=== PATIENT | male | born 1980 | race African-American/Black ===

== ENCOUNTER 2018-02-02 18:27 | Emergency (ER) | payer SELFPAY ==
[2018-02-02] MEDS ORDERED: NA CHLORIDE 0.9% 2,000 ML ONE (18:59)
[2018-02-02 19:28] LABS: Albumin 4.1 g/dL (3.4-5.0); Bilirubin Direct 0.4 mg/dL (0-0.2); Bilirubin Total 1.7 mg/dL (0.2-1.0); Magnesium 1.8 mg/dL (1.8-2.4); Potassium 3.4 mmol/L (3.5-5.1); Protein, Total 7.3 g/dL (6.4-8.2)
[2018-02-02 19:41] LABS: Absolute Lymphocytes (CBC) 1.8 K/uL (0.7-4.9); Absolute Neutrophil 7.6 K/uL (1.8-8.0); Basophils % 0.8 % (0-1.3); Eosinophils % 0.5 % (0-4.4); Hematocrit 43.3 % (39.6-49.0); Lymphocytes % 17.1 % (15.3-44.8); MCV 86.5 fL (80-100); MPV 10.3 fL (7.6-11.3); Monocytes % 9.9 % (3.3-12.3)
--- NOTE | 2018-02-02 20:23 | EDPHYS ---
Physician Documentation [facility] Name: Rodrigo Bird Age: 37 yrs Sex: Male : 1980 Arrival Date: 02/02/2018 Time: 18:28 Bed 13 Private MD: ED Physician Jerrod Oneal HPI: 02/02 20:12 This 37 yrs old Black Male presents to ER via EMS with complaints of Heat Related jr8 Illness. 20:12 Patient was working outside. Stated that he became over heated. Had syncopal episode. jr8 Complains of hip pain. Denies head or neck pain. Stated that his lower legs are cramping as well . Onset: The symptoms/episode began/occurred acutely, today. Severity of symptoms: At their worst the symptoms were moderate in the emergency department the symptoms are unchanged. The patient has not experienced similar symptoms in the past. The patient has not recently seen a physician. Historical: - Allergies: 18:33 No Known Allergies; ch - Home Meds: 18:33 glyburide 5 mg Oral tab 2 tabs once daily [Active]; levothyroxine 125 mcg tab 1 tab ch once daily [Active]; Lipitor 10 mg Oral tab 1 tab once daily [Active]; atorvastatin 40 mg oral tab 1 tab once daily [Active]; pantoprazole 40 mg oral TbEC 1 tab once daily [Active]; - PMHx: 18:33 morbid obesity; GERD; Hypertension; Hyperlipidemia; Diabetes - NIDDM; ch - PSHx: 18:33 None; ch - Immunization history:: Adult Immunizations up to date, Flu vaccine is not up to date. - Social history:: Smoking status: Patient/guardian denies using tobacco, Patient/guardian denies using alcohol, street drugs. - Ebola Screening: : Patient negative for fever greater than or equal to 101.5 degrees Fahrenheit, and additional compatible Ebola Virus Disease symptoms Patient denies exposure to infectious person Patient denies travel to an Ebola-affected area in the 21 days before illness onset No symptoms or risks identified at this time. ROS: 20:12 Eyes: Negative for injury, pain, redness, and discharge, ENT: Negative for injury, jr8 pain, and discharge, Neck: Negative for injury, pain, and swelling, Cardiovascular: Negative for chest pain, palpitations, and edema, Respiratory: Negative for shortness of breath, cough, wheezing, and pleuritic chest pain, Abdomen/GI: Negative for abdominal pain, nausea, vomiting, diarrhea, and constipation, Back: Negative for injury and pain, Skin: Negative for injury, rash, and discoloration. 20:12 MS/extremity: Positive for pain, of the left leg. 20:12 Neuro: Positive for dizziness, syncope, Negative for altered mental status, gait disturbance, hearing loss, numbness, seizure activity, speech changes, tingling, tinnitus, tremor, visual changes, weakness. Exam: 20:12 Eyes: Pupils equal round and reactive to light, extra-ocular motions intact. Lids and jr8 lashes normal. Conjunctiva and sclera are non-icteric and not injected. Cornea within normal limits. Periorbital areas with no swelling, redness, or edema. ENT: Nares patent. No nasal discharge, no septal abnormalities noted. Tympanic membranes are normal and external auditory canals are clear. Oropharynx with no redness, swelling, or masses, exudates, or evidence of obstruction, uvula midline. Mucous membranes moist. Neck: Trachea midline, no thyromegaly or masses palpated, and no cervical lymphadenopathy. Supple, full range of motion without nuchal rigidity, or vertebral point tenderness. No Meningismus. Cardiovascular: Regular rate and rhythm with a normal S1 and S2. No gallops, murmurs, or rubs. Normal PMI, no JVD. No pulse deficits. Respiratory: Lungs have equal breath sounds bilaterally, clear to auscultation and percussion. No rales, rhonchi or wheezes noted. No increased work of breathing, no retractions or nasal flaring. Abdomen/GI: Soft, non-tender, with normal bowel sounds. No distension or tympany. No guarding or rebound. No evidence of tenderness throughout. Back: No spinal tenderness. No costovertebral tenderness. Full range of motion. MS/ Extremity: Pulses equal, no cyanosis. Neurovascular intact. Full, normal range of motion. Tenderness to left hip Neuro: Awake and alert, GCS 15, oriented to person, place, time, and situation. Cranial nerves II-XII grossly intact. Motor strength 5/5 in all extremities. Sensory grossly intact. Cerebellar exam normal. Normal gait. 20:12 Skin: diaphoretic. Normal color. Cool to touch . Vital Signs: 18:33 BP 138 / 84; Pulse 92; Resp 16; Temp 97.8; Pulse Ox 99% on R/A; Weight 208.65 kg; ch Height 6 ft. 2 in. (187.96 cm); Pain 8/10; 20:48 BP 141 / 89; Pulse 90; Resp 18; Pulse Ox 98% on R/A; aa1 18:33 Body Mass Index 59.06 (208.65 kg, 187.96 cm) ch MDM: 18:29 Patient medically screened. 8 20:22 Data reviewed: vital signs, nurses notes, lab test result(s), EKG, radiologic studies, jr8 plain films, and as a result, I will discharge patient. Data interpreted: Pulse oximetry: on room air is 99 %. Interpretation: normal. Counseling: I had a detailed discussion with the patient and/or guardian regarding: the historical points, exam findings, and any diagnostic results supporting the discharge/admit diagnosis, lab results, radiology results, the need for outpatient follow up, a family practitioner, to return to the emergency department if symptoms worsen or persist or if there are any questions or concerns that arise at home. Response to treatment: the patient's symptoms have markedly improved after treatment, patient is well hydrated. 02/02 18:29 Order name: CBC with Diff; Complete Time: 19:56 02/02 18:29 Order name: Basic Metabolic Panel; Complete Time: 19:33 02/02 18:29 Order name: LFT's; Complete Time: 19:33 02/02 18:29 Order name: CPK; Complete Time: 19:33 02/02 18:30 Order name: Magnesium; Complete Time: 19:33 02/02 19:41 Order name: Hip Left 2 View XRAY aa1 02/02 18:29 Order name: IV; Complete Time: 18:53 02/02 18:29 Order name: Glucose Level; Complete Time: 18:53 02/02 20:15 Order name: EKG - Nurse/Tech; Complete Time: 20:16 02/02 20:16 Order name: EKG; Complete Time: 20:16 aa Administered Medications: 18:29 Drug: NS 0.9% 1000 ml Route: IV; Rate: 1000 ml; Site: left antecubital; hj 20:47 Follow up: IV Status: Completed infusion aa1 18:55 Drug: NS 0.9% 1000 ml Route: IV; Rate: 1000 ml; Site: left antecubital; 20:47 Follow up: IV Status: Completed infusion aa Point of Care Testing: Blood Glucose: 18:54 Blood Glucose: 233 mg/dL; Ranges: Critical Glucose Levels:Adult <50 mg/dl or >400 mg/dl <40 mg/dl or >180 mg/dl Disposition: 02/02/18 20:22 Discharged to Home. Impression: Contusion of left hip, Heat exhaustion, unspecified. - Condition is Stable. - Discharge Instructions: Hip Pain, Heat Exhaustion Information. - Work release form, Medication Reconciliation Form, Thank You Letter, Antibiotic Education, Prescription Opioid Use form. - Follow up: Private Physician; When: 1 - 2 days; Reason: Recheck today's complaints, Continuance of care, Re-evaluation by your physician. - Problem is new. - Symptoms have improved. Addendum: 02/04/2018 10:46 Co-signature as Attending Physician, Jerrod Oneal MD I agree with the assessment and k dr plan of care. Signatures: Dispatcher [employer] EDMS Kylee Perdomo RN RN Mamie Turner RN RN aa1 Jerrod Oneal MD MD [facility] Josesito Guzmán PA PA jr8 Dano Fischer RN RN Corrections: (The following items were deleted from the chart) 02/02 20:49 20:22 02/02/2018 20:22 Discharged to Home. Impression: Contusion of left hip; Heat aa1 exhaustion, unspecified. Condition is Stable. Forms are Medication Reconciliation Form, Thank You Letter, Antibiotic Education, Prescription Opioid Use. Follow up: Private Physician; When: 1 - 2 days; Reason: Recheck today's complaints, Continuance of care, Re-evaluation by your physician. Problem is new. Symptoms have improved. jr8
--- NOTE | 2018-02-02 20:23 | ER ---
Nurse's Notes [facility] Name: Rodrigo Bird Age: 37 yrs Sex: Male : 1980 Arrival Date: 02/02/2018 Time: 18:28 Bed 13 Private MD: Diagnosis: Contusion of left hip;Heat exhaustion, unspecified Presentation: 02/02 18:30 Presenting complaint: EMS states: pt was working outside in the heat, got overheated, ch felt very sweaty, then clammy, got dizzy and lightheaded, sat down on the ground, things got black and he felt like he was going to pass out. IV established, given 500 mL fluid in route. pt was extreemly diaphoretic on scene, bgl 84. pt states his body is cramping all over. Transition of care: patient was not received from another setting of care. Onset of symptoms was February 02, 2018 at 17:30. Risk Assessment: Do you want to hurt yourself or someone else? Patient reports no desire to harm self or others. Initial Sepsis Screen: Does the patient meet any 2 criteria? No. Patient's initial sepsis screen is negative. Does the patient have a suspected source of infection? No. Patient's initial sepsis screen is negative. Care prior to arrival: Medication(s) given: Normal saline infusion, 500 mL, IV initiated. 18 GA, in the left antecubital area. 18:30 Method Of Arrival: EMS: [facility] 18:30 Acuity: JAXSON 3 ch Triage Assessment: 18:33 General: Appears in no apparent distress. uncomfortable, Behavior is cooperative, ch restless. Pain: Complains of pain in back, right arm, left arm, right leg and left leg. Historical: - Allergies: 18:33 No Known Allergies; ch - Home Meds: 18:33 glyburide 5 mg Oral tab 2 tabs once daily [Active]; levothyroxine 125 mcg tab 1 tab ch once daily [Active]; Lipitor 10 mg Oral tab 1 tab once daily [Active]; atorvastatin 40 mg oral tab 1 tab once daily [Active]; pantoprazole 40 mg oral TbEC 1 tab once daily [Active]; - PMHx: 18:33 morbid obesity; GERD; Hypertension; Hyperlipidemia; Diabetes - NIDDM; ch - PSHx: 18:33 None; ch - Immunization history:: Adult Immunizations up to date, Flu vaccine is not up to date. - Social history:: Smoking status: Patient/guardian denies using tobacco, Patient/guardian denies using alcohol, street drugs. - Ebola Screening: : Patient negative for fever greater than or equal to 101.5 degrees Fahrenheit, and additional compatible Ebola Virus Disease symptoms Patient denies exposure to infectious person Patient denies travel to an Ebola-affected area in the 21 days before illness onset No symptoms or risks identified at this time. Screenin:58 Abuse screen: Denies threats or abuse. Denies injuries from another. Nutritional hj screening: No deficits noted. Tuberculosis screening: No symptoms or risk factors identified. Fall Risk None identified. Assessment: 18:58 General: Appears in no apparent distress. uncomfortable, obese, Behavior is calm, hj cooperative, appropriate for age, Reports feeling ill for. Pain: Complains of pain in left leg and right leg and left arm and right arm and back. Neuro: Level of Consciousness is awake, alert, obeys commands, Oriented to person, place, time, situation, Appropriate for age. Cardiovascular: Capillary refill < 3 seconds Patient's skin is warm and dry. Respiratory: Airway is patent Respiratory effort is even, unlabored, Respiratory pattern is regular, symmetrical. GI: No signs and/or symptoms were reported involving the gastrointestinal system. : No signs and/or symptoms were reported regarding the genitourinary system. EENT: No signs and/or symptoms were reported regarding the EENT system. Derm: No signs and/or symptoms reported regarding the dermatologic system. Musculoskeletal: No signs and/or symptoms reported regarding the musculoskeletal system. 20:48 Reassessment: Patient appears in no apparent distress at this time. Patient is alert, aa1 oriented x 3, equal unlabored respirations, skin warm/dry/pink. Discussed d/c \T\ f/u instructions with pt; denies questions or concerns at this time Patient states feeling better. Vital Signs: 18:33 BP 138 / 84; Pulse 92; Resp 16; Temp 97.8; Pulse Ox 99% on R/A; Weight 208.65 kg; ch Height 6 ft. 2 in. (187.96 cm); Pain 8/10; 20:48 BP 141 / 89; Pulse 90; Resp 18; Pulse Ox 98% on R/A; aa1 18:33 Body Mass Index 59.06 (208.65 kg, 187.96 cm) ED Course: 18:28 Patient arrived in ED. iw 18:29 Josesito Guzmán PA is PHCP. jr8 18:29 Jerrod Oneal MD is Attending Physician. jr8 18:32 Triage completed. ch 18:33 Arm band placed on left wrist. Patient placed in an exam room, on a stretcher, on pulse oximetry. 18:53 CPK Sent. hj 18:53 LFT's Sent. hj 18:53 Basic Metabolic Panel Sent. hj 18:53 CBC with Diff Sent. hj 18:53 Magnesium Sent. hj 18:58 Patient has correct armband on for positive identification. Bed in low position. Call light in reach. Side rails up X 1. 19:00 Report given to Raven Turner RN. hj 19:16 Mamie Turner, RN is Primary Nurse. aa1 19:17 Lab(s) recollected, by me, sent to lab. aa1 19:25 Magnesium Sent. hj 20:12 Hip Left 2 View XRAY In Process Unspecified. EDMS 20:48 No provider procedures requiring assistance completed. IV discontinued, intact, aa1 bleeding controlled, No redness/swelling at site. Pressure dressing applied. Administered Medications: 18:29 Drug: NS 0.9% 1000 ml Route: IV; Rate: 1000 ml; Site: left antecubital; hj 20:47 Follow up: IV Status: Completed infusion aa1 18:55 Drug: NS 0.9% 1000 ml Route: IV; Rate: 1000 ml; Site: left antecubital; hj 20:47 Follow up: IV Status: Completed infusion aa1 Point of Care Testing: Blood Glucose: 18:54 Blood Glucose: 233 mg/dL; hj Ranges: Outcome: 20:22 Discharge ordered by . jr8 20:48 Discharged to home ambulatory. aa1 20:48 Condition: good 20:48 Discharge instructions given to patient, Instructed on discharge instructions, follow up and referral plans. medication usage, Demonstrated understanding of instructions, follow-up care, medications. 20:49 Patient left the ED. aa1 Signatures: Dispatcher [employer] EDMS Kylee Perdomo RN RN Mamie Turner RN RN aa1 Yessica Sanchez RN RN iw Josesito Guzmán PA PA jr8 Dano Fischer, RN RN hj
--- NOTE | 2018-02-02 20:52 | RAD REPORT ---
EXAM DESCRIPTION: RAD - Hip Left 2 View - 02/02/2018 8:13 pm CLINICAL HISTORY: PAIN COMPARISON: No comparisons FINDINGS: Soft tissue artifact limits quality of bone detail. Mild osteoarthritic changes are presen t. No fracture, dislocation or AVN.
--- NOTE | 2018-02-03 16:19 | EKG ---
Test Date: 2018-02-02 Test Time: 19:03:23 Master Sonar Technician: MONICA MEASUREMENT RESULTS: Intervals: Rate: 74 TN: 178 QRSD: 100 QT: 406 QTc: 450 [place]: P: 46 TN: 178 QRS: 52 T: 47 INTERPRETIVE STATEMENTS: Normal sinus rhythm Nonspecific T wave abnormality Abnormal ECG No previous ECG available for comparison Electronically Signed On 02-03-18 16:14:47 CDT by Chico Rodriguez
== END 2018-02-02 20:49 | disposition home or self-care (01) ==
LOC: ER 18:27
DX: S70.02XA Contusion of left hip, initial encounter (principal); X30.XXXA Exposure to excessive natural heat, initial encounter; Y93.89 Activity, other specified; Y92.89 Other specified places as the place of occurrence of the external cause; Y99.8 Other external cause status; I10 Essential (primary) hypertension; E78.5 Hyperlipidemia, unspecified; E11.9 Type 2 diabetes mellitus without complications
CPT/HCPCS: 36415; 80048; 80076; 82550; 82962; 83735; 85025; 93005; 96360; 96361; 99284; J7030